=== PATIENT | male | born 1950 | race African-American/Black ===

== ENCOUNTER 2018-11-06 05:45 | Day surgery (SDC) | payer MEDICARE, OTHER ==
[2018-11-05 10:20] LABS: HEMATOCRIT 34.4 % (42.0-54.0); HEMOGLOBIN 11.7 g/dL (13.5-17.5); MCH 29.1 pg (26.0-34.0); MCV 85.6 fL (80.0-100.0); MEAN PLATELET VOLUME 10.6 fL (7.4-10.4); RBC 4.02 10x6/uL (4.20-6.10); RDW 13.6 % (11.5-14.5); WBC 4.8 10x3/uL (4.8-10.8)
[2018-11-05 10:28] LABS: CALCIUM 9.4 mg/dL (8.5-10.1); CARBON DIOXIDE 28.4 mmol/L (21.0-32.0); CREATININE - SERUM 1.6 mg/dL (0.6-1.3); POTASSIUM - SERUM 4.4 mmol/L (3.5-5.1)
[~2018-11-06] VITALS: Ht 182.9 cm; Wt 111.6 kg
[~2018-11-06 05:45] MED LIST: ANDROGEL5 GM TP; ASPIRIN EC81 M1 PO; GLUCOPHAGE1000 MG PO; NORVASC5 MG PO; OMEPRAZOLE20 M1 PO
[2018-11-06] MEDS ORDERED: FLOMAX0.4 MG PO (06:19)
[2018-11-06] MEDS ORDERED: BAYER CHEWABLE81 MG PO (06:21)
[2018-11-06] MEDS ORDERED: LIPITOR10 MG PO (06:21)
[2018-11-06 06:28] VITALS: BP 144/78; Ht 182.9 cm; Wt 111.6 kg
--- NOTE | 2018-11-06 09:26 | OP ---
PATIENT NAME: KATHY MIKE MEDICAL RECORD: [id number] :48 LOCATION:D[facility] ADMISSION DATE: SURGEON: MCKAY XAVIER MD DATE OF OPERATION: 11/06/2018 SURGEON: Mckay Xavier MD ANESTHESIA: TIVA by KEN Silva CRNA. DIAGNOSES: Elevated PSA of 4.14 (08/30/2018), bladder outlet obstruction. PROCEDURE: Cystoscopy, transrectal ultrasound and prostate biopsy. FINDINGS: On cystoscopy, bilateral lateral lobe hyperplasia. Single ureteral orifices bilaterally. No bladder tumors. SPECIMENS: Prostate biopsy cores. BLOOD LOSS: Minimal. CLINICAL HISTORY: This is a 68-year-old male, who has an elevated PSA of 4.14. He is on testosterone supplementation. He has a family history of prostate cancer in an uncle. In terms of voiding symptoms, he has a weaker urinary flow. He comes today to have cystoscopy and a transrectal ultrasound and prostate biopsy. He is not allergic to any medications. He was given Ancef director of reservations to the OR. DESCRIPTION OF PROCEDURE: The patient was given IV sedation. He was then placed into the lithotomy position and prepped and draped. A 21-Serbian cystoscope with 30-degree lens was used for visualization. Findings are as outlined above. The lateral lobes have some degree of obstruction. The bladder neck is a little bit elevated. No bladder tumors were seen. The bladder was then emptied through the cystoscope sheath and the scope was removed. We then introduced the transrectal ultrasound probe. Prostate size measurements were obtained and we estimated the prostate volume at 29 mL. Sextant biopsies were then obtained with at least 3 cores from each sextant. Once all the specimens were obtained, the procedure was terminated. I did not see any hypoechoic areas within the prostate. I will see the patient in followup in 2 weeks to review the pathology results with him. TRANSINT:[id number] Voice Confirmation ID: [id number] DOCUMENT ID: [id number] MCKAY XAVIER MD at 0926 CC: [id number] DICTATION DATE: 11/06/18829 SUPPLY CH[employer] SYSTEMS MANAGER: 11/06/18 0838 [facility] [address] [place] [address]
--- NOTE | 2018-11-06 09:51 | NUR ---
0931 IV DC'D. CATHETER TIP INTACT. NO BLEEDING AT SITE. BANDAID APPLIED.
== END 2018-11-06 09:44 | disposition home or self-care (01) ==
LOC: D.OPS 05:45 → D.PAN 08:20 → D.OPS 08:20 → D.PAN 09:10 → D.OPS 09:30 → D.PAN 09:30 → D.OPS 09:44
PROVIDERS: Anesthesiology; ATTEND Urology
DX: C61 Malignant neoplasm of prostate (principal); N32.0 Bladder-neck obstruction; Z01.812 Encounter for preprocedural laboratory examination

== ENCOUNTER → 2018-11-27 12:19 | Outpatient (CLI) | payer MEDICARE, OTHER ==
[2018-11-06 06:28] VITALS: BMI 33.4
[~2018-11-27 12:19] MED LIST changes: +BAYER CHEWABLE81 MG PO; +FLOMAX0.4 MG PO; +LIPITOR10 MG PO
== END | disposition home or self-care (01) ==
LOC: D.CT 12:00
PROVIDERS: ATTEND Urology
DX: C61 Malignant neoplasm of prostate (principal)

== ENCOUNTER → 2019-04-05 13:10 | Outpatient (CLI) | payer MEDICARE, OTHER ==
[2018-11-06 06:28] VITALS: BMI 33.4
[2019-04-06 05:09] LABS: ANA REFLEX - DIRECT Negative (Negative)
[2019-04-08 12:08] LABS: ANGIOTENSIN CONVERTING ENZYME 27 U/L (14-82)
[2019-04-09 18:08] LABS: FUNGAL - ASP FLAVUS Negative (Neg:<1:1); FUNGAL - ASP NIGER Negative (Neg:<1:1); FUNGAL - ASPER FUMIGATUS Negative (Neg:<1:1)
== END | disposition home or self-care (01) ==
LOC: D.LAB 03-15 14:15 → D.RT 03-15 14:30 → D.CT 03-15 15:00 → D.LAB 13:00 → D.RT 15:00
PROVIDERS: ATTEND Internal Medicine Pulmonary Disease
DX: R06.00 Dyspnea, unspecified (principal)

== ENCOUNTER → 2019-10-03 08:19 | Outpatient (CLI) | payer MEDICARE, OTHER ==
[2018-11-06 06:28] VITALS: BMI 33.4
== END | disposition home or self-care (01) ==
LOC: D.HCCECHO 08:19
PROVIDERS: ATTEND Internal Medicine Cardiovascular Disease
DX: R07.9 Chest pain, unspecified (principal)

== ENCOUNTER 2019-10-24 05:53 | Day surgery (SDC) | payer MEDICARE, OTHER ==
[~2019-10-24] VITALS: Ht 182.9 cm; Wt 111.1 kg
--- NOTE | ~2019-10-24 | HEMODYNAMI ---
PATIENT:KATHY MIKE MEDICAL RECORD: [id number] : 48 LOCATION:[facility] ADMISSION DATE: 10/24/19 Generatedon:10/24/20198:27 Patient name: KATHY MIKE Patient #: [id number] SSN: [id number] : 1950 Date of study: 10/24/2019 Page: Of Hemodynamic Procedure Report Patient Data Patient Demographics Procedure consent was obtained First Name: KATHY Gender: Male Last Name: RASHID : 1950 [facility] Initial: MIYA Age: 69 year(s) Patient #: [id number] Race: Black SSN: [id number] Additional ID: [id number] Contact details [address]: [address] [place] [address] State: [place] City: [place] Zip code: [address] Past Medical History Performed procedures and imaging results Date Procedure Procedure Results Comments 10/03/2019 Stress testing Positive->Intermediate with SPECT MPI risk Admission Admission Data Admission Date: 10/24/2019 Admission Time: 5:53 Arrival Date: 10/24/2019 Arrival Time: 0:00 Admit Source: Other Insurance Payor: Medicare [facility] #: [id number] Height (in.): 72 BSA: 2.32 (m2) Height (cm.): 182.88 BMI: 33.22 (kg/m2) Weight (lbs.): 244.91 Weight (kg.): 111.09 Lab Results Lab Result Date: 10/24/2019 Lab Result Time: 0:00 CBC Name Units Result Min Max Hematocrit % 31.6 *-(----)-- 42 54 Hemoglobin g/dl 10.2 *-(----)-- 13.5 17.5 Procedure Procedure Types Cath Procedure Diagnostic Procedure [facility] w/Coronaries Sedation Charges Moderate Sedation up to 15 minutes Procedure Description Procedure Date Procedure Date: 10/24/2019 Procedure Start Time: 8:06 Procedure End Time: 8:26 Procedure Staff Name Function Omar Chung MD Performing Physician Khadra Aceves RT Monitor Ioana Young RT Scrub Daniel Mercedes RN Nurse Procedure Data Cath Procedure Fluoroscopy Diagnostic fluoroscopy Total fluoroscopy Time: 3 time: 3 min min Diagnostic fluoroscopy Total fluoroscopy dose: dose: 1063 mGy 1063 mGy Contrast Material Contrast Material Type Amount (ml) Isovue 300 93 Entry Location Entry Primary Successful Side Size Upsize Upsize Entry Closure Carlos ccessful Closure Location (Fr) 1 (Fr) 2 (Fr) Remarks Device Remarks Radial Right 6 Fr Mechanical artery Short Compression Estimated blood loss: 5 ml Diagnostic catheters Device Type Used For End Catheter Placement DIAGNOSTIC Raul 110cm Multi-vessel 5Fr catheter ([id number]) Angiography DIAGNOSTIC [place] 110cm 5 Left Coronary Fr catheter (961771) Angiography Procedure Complications No complications Procedure Medications Medication Administration Route Dosage Oxygen etCO2 Nasal cannula 2 l/min Lidocaine 2% added to field 20 Heparin Flush Bag added to field 2 bags (1000units/500ml NS) 0.9% NaCl I.V. 100 ml/hr Versed I.V. 1 mg Fentanyl I.V. 50 mcg Radial Cocktail I.A. 1 syringe (Verapamil 2mg/Nitro 400mcg/Heparin 1500units) Versed I.V. 1 mg Fentanyl I.V. 50 mcg Versed I.V. 1 mg Hemodynamics Rest BSA: 2.32 (m2) HGB: 10.2 (g/dl) O2 Consumption: Estimated: 270.34 (ml/min) O2 Co nsumption indexed: Estimated:116.53 (ml/min/m) Heart Rate: 72 (bpm) Pressure Samples Time Site Value (mmHg) Purpose Heart Use Rate(bpm) 8:11 LV 141/-7,8 Snapshot 66 Gradients Valve Time Site Site Mean SEP/DFP Peak To Heart Use 1 2 (mmHg) (sec/min) Peak Rate (mmHg) (bpm) Aortic 8:12 LV AO 83 Snapshots Pre Cath Intra NCS Post Cath Vital Signs Time Heart Resp SPO2 etCO2 NIBP (mmHg) Rhythm Pain Sedation Rate (ipm) (%) (mmHg) Status Level (bpm) 7:44:49 71 15 100 0 157/97(145) NSR 0 (11) 10(A) , No pain 7:50:25 62 13 98 36.7 145/97(124) NSR 0 (11) 10(A) , No pain 7:54:49 61 13 99 39.6 146/76(124) NSR 0 (11) 10(A) , No pain 7:59:15 63 14 99 40.4 149/74(121) NSR 0 (11) 10(A) , No pain 8:03:38 61 12 98 40.4 135/70(126) NSR 0 (11) 10(A) , No pain 8:07:51 95 13 100 0 126/77(100) NSR 0 (11) 9(A) , No pain 8:12:51 66 15 97 35.2 121/66(0) NSR 0 (11) 9(A) , No pain 8:17:46 69 11 100 38.9 128/82(110) NSR 0 (11) 9(A) , No pain 8:22:08 63 12 100 38.2 138/73(119) NSR 0 (11) 10(A) , No pain 8:26:32 66 12 100 40.4 157/78(137) NSR 0 (11) 10(A) , No pain Medications Time Medication Route Dose Verified Delivered Reason Notes Effectiveness by by 7:50:23 Oxygen etCO2 2 l/min Omar Buffie used for Nasal Sheldon Mercedes RN procedure cannula 7:50:33 Lidocaine 2% added 20ml Omar Buffie used for to vial Sheldon Mercedes RN procedure field 7:50:41 Heparin Flush added 2 bags Omar Buffie used for Bag to Sheldon Mercedes RN procedure (1000units/500ml field NS) 7:50:53 0.9% NaCl I.V. 100 Omar Buffie Per ml/hr Sheldon Mercedes RN physician 8:00:34 Versed I.V. 1 mg Omar Buffie for sedation Sheldon Mercedes RN 8:00:41 Fentanyl I.V. 50 mcg Omar Buffie for sedation Sheldon Mercedes RN 8:04:30 Versed I.V. 1 mg Omar Omar for sedation Sheldon Chung MD 8:04:34 Fentanyl I.V. 50 mcg Omar Omar for sedation Sheldon Chung MD 8:10:31 Radial Cocktail I.A. 1 Omar Omar for (Verapamil syringe Sheldon Chung MD vasodilation 2mg/Nitro 400mcg/Heparin 1500units) 8:11:28 Versed I.V. 1 mg Omar Omar for sedation Sheldon Chung MD Procedure Log Time Note 7:30:15 Daniel Mercedes RN sent for patient. Start room use. 7:31:07 Informed consent obtained and on chart 7:31:29 Diagnostic Cath Status : Elective 7:32:12 Arrival Date: 10/24/2019 12:00:00 AM 7:32:13 Admit Source: Other 7:32:14 Insurance Payor : Medicare 7:32:52 Patient Height : 72 inches 7:32:56 Patient Weight : 244.91 lbs 7:34:22 Time tracking: Regular hours (M-F 7:00 - 5:00) 7:34:27 Plan of Care:Hemodynamics will remain stable., Cardiac rhythm will remain stable., Comfort level will be maintained., Respiratory function will remain adequate., Patient/ family verbilizes understanding of procedure., Procedure tolerated without complication., Recovers from procedure without complications.. 7:34:37 H&P Date Dictated: 10/22/2019 Within 30 days and on chart.. 7:34:38 Pre-procedure instructions explained to patient. 7:34:39 Pre-op teaching completed and patient verbalized understanding. 7:34:40 Family unavailable. 7:34:42 Patient NPO since Midnight. 7:34:48 Lab results completed and on chart. 7:35:05 Stress Test: yes; abnormal INFERIOR SEGMENTS 7:35:07 Alarms reviewed by R. N. 7:35:07 Sharps counted by scrub and verified by R.N. 7:35:24 Lab Result : Hemoglobin 10.2 g/dl 7:35:24 Lab Result : Hematocrit 31.6 % 7:35:44 Patient received from Pre/Post Procedure Room to CCL 1 Alert and oriented. Tansferred to table in Supine position. 7:43:29 Vital chart was started 7:44:38 Warm blankets applied, and landy hugger turned on for patient comfort. 7:44:39 Correct patient and procedure confirmed by team. 7:44:39 ECG and BP/O2 sat monitors applied to patient. 7:44:40 Baseline sample Acquired. 7:44:44 Rhythm: sinus rhythm 7:44:46 Full Disclosure recording started 7:44:49 Is the patient allergic to Iodine/contrast media? No. 7:44:51 Was the patient premedicated? Yes 7:44:53 Is patient on blood thinner?No 7:44:57 Patient diabetic? Yes. 7:45:05 If diabetic: On Metformin? Yes 7:45:08 If on Metformin: Last Dose? 10/20/2019 7:45:12 Previous problem with sedation/anesthesia? No ? 7:45:16 Snore? Yes 7:45:17 Sleep apnea? Yes 7:45:19 Deviated septum? No 7:45:19 Opens mouth fully? Yes 7:45:20 Sticks out tongue? Yes 7:45:31 Airway obstruction? Yes COPD, ASTHMA 7:45:39 Dentures? No ? 7:48:27 Pre procedure: right dorsailis pedis pulse 2+ Normal; easily identifiable; not easily obliterated 7:48:29 Pre procedure: left dorsailis pedis pulse 2+ Normal; easily identifiable; not easily obliterated 7:48:31 Patient pain scale 0/10 ?. 7:48:39 IV patent on arrival in left forearm with 0.9% NaCl at [facility]. 7:50:23 Oxygen 2 l/min etCO2 Nasal cannula was administered by Daniel Mercedes RN; used for procedure; Verbal order read back and verified. 7:50:33 Lidocaine 2% 20ml vial added to field was administered by Daniel Mercedes RN; used for procedure; Verbal order read back and verified. 7:50:41 Heparin Flush Bag (1000units/500ml NS) 2 bags added to field was administered by Daniel Mercedes RN; used for procedure; Verbal order read back and verified. 7:50:49 Risk of Mortality: 0.2 7:50:52 Risk of blood transfusion: 1.9 7:50:53 0.9% NaCl 100 ml/hr I.V. was administered by Daniel Mercedes RN; Per physician; Verbal order read back and verified. 7:50:59 Right Radial & Right Groin area was prepped with chlora-prep and draped in sterile fashion 7:54:57 Physician arrived 7:54:57 --------ALL STOP TIME OUT------ 7:54:58 Final Timeout: patient, procedure, and site verified with staff and physician. All members of the team are in agreement. 7:55:02 Right Radial & Right Groin site verified by team. 7:55:06 Fire Safety Assessment: A--An alcohol-based skin anteseptic being used preoperatively., C--Open oxygen or nitrous oxide is being used., D--An ESU, laser, or fiber-optic light is being used. 7:55:10 Physical assessment completed. ASA score P 2 - A patient with mild systemic disease as per Omar Chung MD. 7:59:09 3b) 30-44 Moderately reduced kidney function. 7:59:12 Maximum allowable contrast dose (3.7 X eGFR X 0.75)111 ml. 7:59:16 Sedation plan: IV Moderate Sedation Medication:Versed, Fentanyl 7:59:22 Use device set Radial Dx or PCI 7:59:23 ACIST Syringe (26618) opened to sterile field. 7:59:24 Medline Cath Pack ([id number]) opened to sterile field. 7:59:24 Bag Decanter (2002S) opened to sterile field. 7:59:25 ACIST Hand Control (14674) opened to sterile field. 7:59:25 ACIST Manifold (94464) opened to sterile field. 7:59:25 Tegaderm 4 x 4 (1626W) opened to sterile field. 7:59:26 MBrace Wrist Support ([id number]) opened to sterile field. 7:59:29 NEEDLE Cook 21G 4cm Radial (C48438) opened to sterile field. 7:59:30 EMERALD Guide Wire (878-741) opened to sterile field. 7:59:31 SHEATH 6FR RAIN (0127801) opened to sterile field. 8:00:34 Versed 1 mg I.V. was administered by Daniel Mercedes RN; for sedation; Verbal order read back and verified. 8:00:41 Fentanyl 50 mcg I.V. was administered by Daniel Mercedes RN; for sedation; Verbal order read back and verified. 8:01:53 Zero performed for pressure channel P1 8:04:30 Versed 1 mg I.V. was administered by Omar Chung MD; for sedation; Verbal order read back and verified. 8:04:34 Fentanyl 50 mcg I.V. was administered by Omar Chung MD; for sedation; Verbal order read back and verified. 8:06:02 Procedure started. 8:06:06 Local anesthetic to right radial artery with Lidocaine 2% by Omar Chung MD.INITIAL ACCESS ONLY 8:10:14 A 6 Fr Short sheath was inserted into the Right Radial artery 8:10:31 Radial Cocktail (Verapamil 2mg/Nitro 400mcg/Heparin 1500units) 1 syringe I.A. was administered by Omar Chung MD; for vasodilation; Verbal order read back and verified. 8:10:45 A DIAGNOSTIC Raul 110cm 5Fr catheter (897369) was advanced over the wire and used for Multi-vessel Angiography. 8:11:28 Versed 1 mg I.V. was administered by Omar Chung MD; for sedation; Verbal order read back and verified. 8:12:02 LV hemodynamics recorded. 8:12:03 LV gram done using AMBROSE 8:12:05 Injector settings: Ml/sec: 5, Volume: 15, 8:12:15 EF : 60 % 8:13:14 RCA angiography performed. 8:13:21 Injector settings: Ml/sec: 3, Volume: 6, 8:14:30 Catheter removed. 8:14:37 A DIAGNOSTIC [place] 110cm 5 Fr catheter (908579) was advanced over the wire and used for Left Coronary Angiography. 8:18:24 LCA angiography performed. 8:18:27 Injector settings: Ml/sec: 3, Volume: 6, 8:20:16 Catheter removed. 8:20:30 ZEPHYR REGULAR TR BAND (965286) opened to sterile field. 8:20:52 Sheath removed intact; hemostasis achieved with Mechanical Compression to the Right Radial artery. 8:20:56 Procedure ended.(Physican Out) 8:22:43 Fluoroscopy time 03.00 minutes. 8:22:47 Flurop Dose total: 1063 8:22:47 Fluoroscopy dose: 1063 mGy 8:22:52 Dose Area Product 24769 mGy/cm. 8:23:04 Contrast amount:Isovue 300 93ml. 8:23:12 Maximum allowable dose exceeded? No. 8:23:14 Sharps counted by scrub and verified by R.N. 8:24:28 [place] band inflated with 10cc of air. 8:24:38 Insertion/operative site no bleeding no hematoma. 8:24:52 Post right radial artery:stable 8:25:02 Post Procedure Pulses reassessed and unchanged 8:25:05 Post procedure rhythm: unchanged. 8:25:07 Estimated blood loss: 5 ml 8:25:09 Post procedure instruction explained to patient.Patient verbalizes understanding. 8:25:10 Patient needs reinforcement of post procedure teaching. 8:25:45 Procedure type changed to Cath procedure, Diagnostic procedure, LHC, [facility] w/Coronaries, Sedation Charges, Moderate Sedation up to 15 minutes 8:25:46 Procedure and supply charges have been captured, reviewed, submitted and are correct. 8:25:51 Procedure Complication : No complications 8:26:10 Vital chart was stopped 8:26:12 [facility] Findings: MVD- CABG consult 8:26:14 Operative report dictated upon procedure completion. 8:26:14 See physician's report for complete and final results. 8:26:17 Report given to Pre/Post Procedure Room. 8:26:20 Patient transfered to Pre/Post Procedure Room with Stretcher. 8:26:24 Procedure ended. 8:26:24 Full Disclosure recording stopped 8:26:28 End room use (Document Last) 8:26:59 End room use (Document Last) 8:27:25 End room use (Document Last) Device Usage Item Name Manufacture Quantity Catalog Hospital Part Current Minima l Lot# / Number Charge Number Stock Stock Serial# Code ACIST Acist 1 73784 906655 208061 045147 20 Syringe Medical (97097) Systems Inc Medline Medline 1 [id number] 694942 32200 933897 5 Cath Pack ([id number]) Bag Microtek 1 092732 23064 457381 5 Decanter Medical Inc. () ACIST Hand Acist 1 03854 444966 009465 545918 5 Control Medical (60099) Systems Inc ACIST Acist 1 49199 893057 882860 924307 5 Manifold Medical (04744) Systems Inc Tegaderm 4 3M 1 1626W 531492 075756 827271 5 x 4 (1626W) MBrace Advanced 1 140-0250-00 763206 08190 324070 5 Wrist Vascular Support Dynamics ([id number]) NEEDLE DirectLaw Medical 1 J65952 711316 654432 708418 5 21G 4cm Radial (J35427) DANYALD [place] 1 502-100 063714 664776 888426 5 Guide Wire Health (578-120) SHEATH 6FR Cardinal 1 8406038 305138 8754450 885645 5 [facility] Health (5095341) DIAGNOSTIC Terumo 1 40-5023 515870 214970 887324 5 Raul 110cm 5Fr catheter (921409) DIAGNOSTIC Terumo 1 40-5013 534280 866219 692521 5 [place] 110cm 5 Fr catheter (631678) ZEPHYR Cardinal 1 868549 173076 5445126 724795 5 REGULAR TR Health BAND (485800) Signature Audit Elora Stage Time Signature Unsigned Intra-Procedure 10/24/2019 Khadra Aceves 8:26:59 AM RT(R) Intra-Procedure 10/24/2019 Daniel Mercedes RN 8:27:25 AM Intra-Procedure 10/24/2019 Omar Chung MD 8:27:43 AM [facility] [address] [place] [address]
[2019-10-24] MEDS ORDERED: IPRAT-ALBUT 0.5-3 ML UPD (06:17)
[2019-10-24] MEDS ORDERED: GEMFIBROZIL600 MG PO (06:17)
[2019-10-24] MEDS ORDERED: OXYBUTYNIN CHLOR5 MG PO (06:18)
[2019-10-24] MEDS ORDERED: HUMALOG MI100 UNITS/ SC (06:19)
[2019-10-24] MEDS ORDERED: BASAGLAR K100 UNIT/1 SC (06:20)
[2019-10-24 06:39] VITALS: BP 144/75; Ht 182.9 cm; Wt 111.1 kg
[2019-10-24 07:07] LABS: BASOPHILS 0.4 % (0-2); EOSINOPHILS 5.7 % (0-7); HEMATOCRIT 31.6 % (42.0-54.0); HEMOGLOBIN 10.2 g/dL (13.5-17.5); IMMATURE GRANULOCYTES 0.2 % (0-5); LYMPHOCYTES 28.7 % (15-50); MCH 27.6 pg (26.0-34.0); MCHC 32.3 g/dL (31.0-37.0); MCV 85.6 fL (80.0-100.0); MEAN PLATELET VOLUME 10.7 fL (7.4-10.4); MONOCYTES 9.4 % (2-11); NEUTROPHILS 55.6 % (40-80); PLATELET COUNT 253 10x3/uL (130-400); RBC 3.69 10x6/uL (4.20-6.10); RDW 13.9 % (11.5-14.5); WBC 4.6 10x3/uL (4.8-10.8)
[2019-10-24 07:57] LABS: ANION GAP 15.8 mmol/L (8-16); CALCIUM 9.7 mg/dL (8.5-10.1); CARBON DIOXIDE 24.5 mmol/L (21.0-32.0); CHOL - HDL RATIO 3.9 ratio (2.3-4.9); CREATININE - SERUM 1.8 mg/dL (0.6-1.3); LDL-HDL RATIO 2.1 ratio (1.5-3.5); POTASSIUM - SERUM 4.3 mmol/L (3.5-5.1)
--- NOTE | 2019-10-24 08:40 | NUR ---
PT RECEIVED VIA STRETCHER FROM DIRECTOR [employer] FOR [employer]OV[employer]. PT AWAKE BUT DROWSY, PT DENIES PAIN OR DISCOMFORT. ZYPHER BAND AND IMMOBILIZER TO R WRIST/ARM, NO BLEEDING OR S/S HEMATOMA NOTED. ARM WARM, CAP REFILL BRISK. PT INSTRUCTED NOT TO USE ARM, HE VERBALIZED UNDERSTANDING. IV PATENT INFUSING VIA ORDERS. PT PLACED ON CARDIAC MONITORS AND O2 VIA NC AT 2L. HR NSR RATE 65, BP 135/79, RR 10, SAT 98. CALL LIGHT IN REACH.
--- NOTE | 2019-10-24 09:00 | NUR ---
ZBAND AND IMMOBILIZER IN PLACE, NO S/S HEMATOMA OR BLEEDING. CAP REFILL BRISK. HR 68, BP 135/74, RR 13, SAT 98. PT DENIES NEEDS AT THIS TIME. CALL LIGHT IN REACH.
--- NOTE | 2019-10-24 09:48 | NUR ---
DR LARIOS AT , DISCUSSING PLAN OF CARE AND PROCEDURE RESULTS. ZBAND AND IMMOBILIZER IN PLACE. NO S/S HEMATOMA OR BLEEDING . CALL LIGHT IN REACH. NO NEW ORDERS RECEIVED
--- NOTE | 2019-10-24 10:15 | NUR ---
5cc AIR REMOVED FROM Z BAND, NO BLEEDING OR S/S HEMATOMA NOTED. PT RESTING COMFORTABLY, DENIES PAIN OR NEEDS. OFFERED SANDWICH, HE DECLINES AT THIS TIME. VSS AT PRESENT. PT VOIDED 150CC IN URINAL. CALL LIGHT IN REACH
--- NOTE | 2019-10-24 10:47 | NUR ---
DISCHARGE INSTRUCTIONS REVIEWED W PT, HE VERBALIZED UNDERSTANDING. IV REMOVED W CATH INTACT, MONITORS REMOVED. 5 ADD'L CC AIR REMOVED FROM Z BAND, NO BLEEDING NOTED. PT UP TO DRESS FOR DISCHARGE.
--- NOTE | 2019-10-24 10:50 | NUR ---
PT DRESSED, ZBAND AND REMAINING AIR REMOVED NO BLEEDING OR S/S HEMATOMA NOTED. 2X2 AND SM TEGADERM DRESSING APPLIED. IMMOBILIZER RE POSITIONED.
--- NOTE | 2019-10-24 11:07 | NUR ---
PT DISCHARGED VIA WC TO SON WAITING IN PRIVATE VEHICLE. PT HAD ALL BELONGINGS AND DISCHARGE PAPERWORK.
== END 2019-10-24 11:05 | disposition home or self-care (01) ==
LOC: D.CATH 05:53
PROVIDERS: ATTEND Internal Medicine Cardiovascular Disease
DX: I25.119 Atherosclerotic heart disease of native coronary artery with unspecified angina pectoris (principal); R94.39 Abnormal result of other cardiovascular function study; J44.9 Chronic obstructive pulmonary disease, unspecified; E78.5 Hyperlipidemia, unspecified; I10 Essential (primary) hypertension; R07.9 Chest pain, unspecified; R06.09 Other forms of dyspnea; I34.0 Nonrheumatic mitral (valve) insufficiency; R94.31 Abnormal electrocardiogram [ECG] [EKG]

== ENCOUNTER 2019-11-11 08:59 | Inpatient (IN) | payer MEDICARE, OTHER ==
[~2019-11-11] VITALS: Ht 182.9 cm; Wt 111.8 kg
[~2019-11-11 08:59] MED LIST changes: +BASAGLAR K100 UNIT/1 SC; +GEMFIBROZIL600 MG PO; +HUMALOG MI100 UNITS/ SC; +IPRAT-ALBUT 0.5-3 ML UPD; +OXYBUTYNIN CHLOR5 MG PO
[2019-11-11] MEDS ORDERED: LANTUS INS100 UNITS/ (09:29)
[2019-11-11 11:40] LABS: BASOPHILS 0.2 % (0-2); EOSINOPHILS 4.3 % (0-7); HEMATOCRIT 31.6 % (42.0-54.0); HEMOGLOBIN 10.2 g/dL (13.5-17.5); IMMATURE GRANULOCYTES 0.2 % (0-5); LYMPHOCYTES 21.6 % (15-50); MCH 27.9 pg (26.0-34.0); MCHC 32.3 g/dL (31.0-37.0); MCV 86.3 fL (80.0-100.0); MEAN PLATELET VOLUME 10.3 fL (7.4-10.4); MONOCYTES 8.6 % (2-11); NEUTROPHILS 65.1 % (40-80); PLATELET COUNT 263 10x3/uL (130-400); RBC 3.66 10x6/uL (4.20-6.10); RDW 13.7 % (11.5-14.5); WBC 4.2 10x3/uL (4.8-10.8)
[2019-11-11 11:47] LABS: APTT 32.2 SECONDS (22.8-39.4); INR 1.01 (0.85-1.17); PROTIME 13.3 SECONDS (11.6-15.0)
[2019-11-11 12:07] LABS: ALBUMIN 3.9 g/dL (3.4-5.0); ANION GAP 11.8 mmol/L (8-16); BILIRUBIN - TOTAL 0.23 mg/dL (0.2-1.3); CALCIUM 9.8 mg/dL (8.5-10.1); CARBON DIOXIDE 28.3 mmol/L (21.0-32.0); CREATININE - SERUM 1.8 mg/dL (0.6-1.3); PHOSPHOROUS 3.7 mg/dL (2.5-4.9); POTASSIUM - SERUM 4.1 mmol/L (3.5-5.1); PROTEIN - SERUM 7.8 g/dL (6.4-8.2); T4 THYROXIN - FREE 0.87 ng/dL (0.76-1.46); THYROID STIMULATING HORMONE 1.07 uIU/mL (0.36-3.74); URIC ACID 6.6 mg/dL (2.6-7.2)
[2019-11-11 12:11] LABS: BILIRUBIN NEGATIVE (NEGATIVE); KETONE NEGATIVE (NEGATIVE); NITRITE NEGATIVE (NEGATIVE)
[2019-11-11 12:18] LABS: BACTERIA FEW /hpf (NONE SEEN); EPITHELIAL CELLS RARE /hpf (0-5); WHITE CELLS - URINE RARE /hpf (0-5)
[2019-11-14] VITALS (49 sets, daily range): BP systolic 115–161; BP diastolic 37–78; BMI 32.9; BMI 33.7
--- NOTE | 2019-11-14 06:04 | NUR ---
0600-IV DISCONTINUED AFTER INITALLY INFUSING WELL, BEGAN SWELLING SHORTLY AFTER START.
[2019-11-14 11:41] LABS: INR 1.6 (0.85-1.17); PROTIME 18.9 SECONDS (11.6-15.0)
[2019-11-14 13:19] LABS: INR 1.36 (0.85-1.17); PROTIME 16.7 SECONDS (11.6-15.0)
--- NOTE | 2019-11-14 18:05 | NUR ---
DR. FINNEGAN NOTIFIED OF PATIENT UPDATE OF BP AND INSULIN GTT WAS STARTED. NEW ORDERS RECEIVED.
[2019-11-15] VITALS (88 sets, daily range): BP systolic 112–155; BP diastolic 45–79; Ht 182.9 cm; Wt 111.8 kg
[2019-11-15 00:38] LABS: ANION GAP 17.9 mmol/L (8-16); CALCIUM 8.2 mg/dL (8.5-10.1); CARBON DIOXIDE 20.9 mmol/L (21.0-32.0); CREATININE - SERUM 2.1 mg/dL (0.6-1.3); POTASSIUM - SERUM 3.8 mmol/L (3.5-5.1)
--- NOTE | 2019-11-15 02:18 | NUR ---
DR FINNEGAN MADE AWARE OF ABGS AT 2023. ORDERS RECEIVED TO EXTUBATE. REPORTED GLUCOSE AND VITAL SIGNS. RECEIVED ORDERS FOR 20MEQ KCL, 2.5 LOPRESSOR ONE TIME ALSO GIVE PRN HYRALAZINE, ABG [address] DERAS FOR BLOOD SUGARS. 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 CONTINUE PROTOCOL BEYOND 18 UNITS/HR AND Q 4H BMP.
--- NOTE | 2019-11-15 04:41 | NUR ---
PT DANGLED, TOLERATED WELL. 20ML NOTED TO CHEST TUBE AND 10 ML TO FILIPE DRAIN. PT IN BED. WILL CONTINUE TO OBSERVE
[2019-11-15 06:16] LABS: ALBUMIN 3.3 g/dL (3.4-5.0); ANION GAP 16.9 mmol/L (8-16); BILIRUBIN - TOTAL 0.24 mg/dL (0.2-1.3); CALCIUM 8.7 mg/dL (8.5-10.1); CARBON DIOXIDE 22.1 mmol/L (21.0-32.0); CREATININE - SERUM 2.1 mg/dL (0.6-1.3); PROTEIN - SERUM 6.9 g/dL (6.4-8.2)
--- NOTE | 2019-11-15 06:50 | NUR ---
CHG BATH GIVEN AND SUBSTERNAL DRESSING CHANGED. COBAN TO RLE REMOVED. PT UP TO CHAIR. TOLERATED WELL. SOME COMPLAINTS OF NAUSEA WITH SMALL CLEAR SPIT UP, LESS THAN 5ML. PT CONSUMED LITTLE ICE CHIPS/WATER EVEN WITHOUT COMPLAINTS OF NAUSEA, ENCOURAGEMENT NEEDED TO DRINK.
[2019-11-15 08:04] LABS: BASOPHILS 0.1 % (0-2); EOSINOPHILS 0.9 % (0-7); IMMATURE GRANULOCYTES 0.8 % (0-5); LYMPHOCYTES 7.6 % (15-50); MCH 28.5 pg (26.0-34.0); MCHC 32.8 g/dL (31.0-37.0); MEAN PLATELET VOLUME 10.2 fL (7.4-10.4); MONOCYTES 5.1 % (2-11); NEUTROPHILS 85.5 % (40-80); RDW 14.4 % (11.5-14.5)
[2019-11-15 08:06] LABS: HEMATOCRIT 29.6 % (42.0-54.0); HEMOGLOBIN 9.7 g/dL (13.5-17.5); MCV 87.1 fL (80.0-100.0); PLATELET COUNT 205 10x3/uL (130-400); WBC 14.1 10x3/uL (4.8-10.8)
--- NOTE | 2019-11-15 08:47 | EC ---
PATIENT:KATHY MIKE DATE OF SERVICE: 11/14/19 SEX: M MEDICAL RECORD: [id number] DATE OF : [birth year] LOCATION:[place] [address] AGE OF PATIENT: 69 ADMISSION DATE: 11/14/19 REFERRING PHYSICIAN: INTERPRETING PHYSICIAN: ASA COYLE MD ECHOCARDIOGRAM REPORT ECHO CHARGES Date: 11/14/19 CLINICAL DIAGNOSIS: ECHOCARDIOGRAPHIC MEASUREMENTS (adult normal given) AC root (d.<3.7cm) cm LV Septum d (<1.2 cm> cm Valve Excursion cm LV Septum (systole) cm Left Atria (s.<4.0cm> cm LVPW d(<1.2cm) cm RV (d.<2.3cm) cm LVPW (sytole) cm LV diastole(<5.6CM) cm MV E-F(>70mm/sec) cm LV systole cm LVOT Diameter cm MV exc.(>10mm) cm Est.ejection fraction (50-75%) % DOPPLER: LVIT cm/sec A cm/sec E cm/sec LA cm/sec RVSP mmHg LVOT cm/sec AOP1/2T m/s Asc. Ao cm/sec RVOT cm/sec RA cm/sec PA cm/sec AV Gradient Peak mmHg AV Mean mmHg AV Area cm MV Gradient Peak mmHg MV Mean mmHg MV Area cm COMMENTS: Tank Welder: Haja VAZQUEZ Check Cashier: 3 Dr. Shepard TAPE# PACS Pericardial Effusion DATE OF SERVICE: PROCEDURE: Intraoperative transesophageal. Preoperative, LV internal wall motion appear normal. EF is better than 50%. Aortic valve has good valve excursion. No significant AI. Left atrium appears normal. Mitral valve shows trivial MR only. Postoperatively, good thickening of all segments of the LV and normal LV function 55%. Aortic valve has good valve excursion. Mitral valve shows ECHOCARDIOGRAM REPORT [id number] KATHY MIKE trivial MR. TRANSINT:[id number] Voice Confirmation ID: [id number] DOCUMENT ID: [id number] ASA COYLE MD at 0847 CC: [id number] DICTATION DATE: 11/14/19 1337 AUDIO VISUAL TECH: 11/14/19 1531 ADM IN [address] [place] [address]
[2019-11-15 09:36] LABS: HEMOGLOBIN 9.9 g/dL (13.5-17.5); MCH 28.7 pg (26.0-34.0); RBC 3.45 10x6/uL (4.20-6.10)
[2019-11-15 09:37] LABS: EOSINOPHILS 0 % (0-7); LYMPHOCYTES 5.5 % (15-50); MEAN PLATELET VOLUME 11.1 fL (7.4-10.4); MONOCYTES 9.9 % (2-11); NEUTROPHILS 84.1 % (40-80); PLATELET COUNT 241 10x3/uL (130-400); RDW 14.3 % (11.5-14.5)
[2019-11-15 09:38] LABS: BASOPHILS 0.1 % (0-2); IMMATURE GRANULOCYTES 0.4 % (0-5)
[2019-11-15 09:40] LABS: WBC 16.3 10x3/uL (4.8-10.8)
--- NOTE | 2019-11-15 10:59 | NUR ---
07-RECIEVED AWAKE AND ALERT-UP IN CHAIR-SR ON MONITOR-O2 AT 2L-PACEMAKER ATTACHED AND OFF AT THIS TIME- 0800-DR FINNEGAN AT BEDSIDE-ORDER RECIEVED-CBC REPEATED WITH BLOOD DRAW- 929-ARMANDO D/C'D ORDERED -SEE EMAR FOR PAIN MANAGEMENT-ENCOURAGED TO DO INCENTIVE-PT WILLING- REPEATED 10X WITH ONLY 500ML-STATED TO PAINFUL TO DO ANY BETTER-FOLLOWING PAIN MANAGEMNT 1030-ASSISTED TO BED FOR REST PERIOD-ORDER PUT IN FOR PHYSICAL THERAPY CLEVIPREX ADJUSTED TO 15MG=NIBP 137/68
--- NOTE | 2019-11-15 13:58 | OP ---
PATIENT NAME: KATHY MIKE MEDICAL RECORD: [id number] :48 LOCATION:D.CVI D.CV04 ADMISSION DATE:11/14/19 SURGEON: EVAN FINNEGAN MD DATE OF OPERATION: 11/14/2019 SURGEON: Evan Finnegan MD PROCEDURE PERFORMED: 1. Coronary artery bypass graft times 3 (left internal mammary to LAD, reverse saphenous vein graft from aorta to obtuse marginal, aorta to posterior descending artery). 2. Endoscopic saphenous vein harvest. PREOPERATIVE DIAGNOSIS: Coronary artery disease. POSTOPERATIVE DIAGNOSIS: Coronary artery disease. ANESTHESIA: General endotracheal anesthesia. ESTIMATED BLOOD LOSS: Total cardiopulmonary bypass with Cell Saver retransfusion, 1 packed red blood cells, 1 unit FFP. COMPLICATIONS: None. SPECIMENS: None. CONDITION: Stable. DISPOSITION: CV ICU. OPERATIVE FINDINGS: 1. Transesophageal echocardiography revealed left ventricular end-diastolic dimension greater than 6. The patient had a large heart with severe distal disease, particularly in the LAD. 2. Good quality left internal mammary artery to LAD was 2.0-mm with severe disease posterior plaque throughout anastomosis between the severe plaque and area with posterior plaque. Good Doppler signal after anastomosis and a 1.5-mm probe passed distally to the apex. 3. Obtuse marginal, which was really the posterolateral branch 2.5-mm with severe disease. 4. Posterior ascending artery 1.5-mm and thin walled. 5. The diagonal was small, severely diseased and not grafted. OPERATIVE INDICATION: Coronary artery disease. DESCRIPTION OF PROCEDURE: The patient was brought to the operating suite. General anesthesia was obtained, the patient was prepped and draped. Greater saphenous vein harvested from right lower extremity utilizing endoscopic technique. Side branches were divided with electrocautery. Vessel was ligated proximally and distally removed. Side branches were oversewn. Leg was later closed in 2 layers. Median sternotomy incision was made. Subcutaneous tissue was divided with electrocautery. Sternum was divided with a saw. Left hemisternum was elevated. Left pleural cavity was entered. Left internal mammary artery and vein were OPERATIVE REPORT [id number] KATHY MIKE taken down as a pedicle graft. Sternal retractor was placed. Pericardium was opened. Heparin was given. The aorta was cannulated. Dual stage venous cannula was inserted. Internal mammary was clipped distally and made ready for anastomosis. Activated clotting time was appropriately elevated. The patient was placed in cardiopulmonary bypass. Sites for distal anastomosis were selected. Antegrade cardioplegic cannula was inserted. The patient was cooled. Crossclamp was placed. Cardioplegia was given antegrade and this was repeated at 20-minute intervals including down the completed vein grafts. Distal anastomosis was performed in standard technique. Proximal anastomosis with single cross-clamp technique. Aortic root de-aired. Crossclamp removed. Proximal anastomosis tied down. Vein grafts deaired and flow restored. Proximal and distal anastomotic were sites inspected for bleeding. A single 7 on the internal mammary distal and 6-0 in each of the proximals. With hemostasis assured, the patient was fully rewarmed, weaned from cardiopulmonary bypass, and was stable. The patient was decannulated. The cannula sites were oversewn. Protamine was given. Thorough irrigation was undertaken and hemostasis was assured. Drains were placed in the mediastinum and both pleural cavities. Ventricular pacing wires were placed. Pericardial fat was loosely reapproximated in the midline. Left chest was evacuated and irrigated. Internal mammary harvest site was inspected for bleeding. Sternum was closed with wires. Fascia was closed. Subcutaneous tissue was closed. Skin was closed. Dermabond was placed. Needle and sponge counts were reported as correct. The patient was taken to ICU in stable condition. TRANSINT:[id number] Voice Confirmation ID: [id number] DOCUMENT ID: [id number] EVAN FINNEGAN MD at 1358 CC: NOAM LARIOS M.D. and DELANO MORALES [id number] DICTATION DATE: 11/14/19 1327 [employer] MAIL CONTRACTOR: 11/14/19 1627 ADM IN [facility] [address] [id number]
--- NOTE | 2019-11-15 15:06 | NUR ---
SON AT BEDSIDE-UPDATE GIVEN-INFORMED DR FINNEGAN AT BEDSIDE TO REMOVE CHEST TUBE-PREMED MORPHINE-2MG IVP GIVEN-SON STATED NO QUESTIONS AT THIS TIME FOR DR FINNEGAN AND LEFT FOR PROCEDURE -CHEST TUBES REMOVED PER DR FINNEGAN-TOLERATED WELL BY PT-PACER WIRE SECURED 1430 -PHYSICAL THERAPY AT BEDSIDE-ASSISTED PT TO BEDSIDE CHAIR MODERATE STRENGTH
--- NOTE | 2019-11-15 18:40 | NUR ---
1730-ASSISTED PT TO BEDSIDE COMMODE-SR ON MONITOR 1830-RT RX IN PROGRESS-PT AWAKE -
--- NOTE | 2019-11-15 19:30 | NUR ---
REPORT REC'D PT REC'D LYING IN BED, ORIENTED TO PERSON ONLY AT THIS TIME, O2 @ 2 LITERS VIA NC, RIJ CVL SEE FLOWSHEET FOR IV GTTS, MAEE, MIDSTERNAL DRSG CDI, SUBSTERNAL DRSG CDIL LEFT SUBSTERNAL FILIPE DRAIN COMPRESSED WITH SANGUINOUS DRAINAGE, RIGHT LEG HARVEST SITES OPEN TO AIR, TEDS AND SCDS IN PLACE, PPP, PT DENIES PAIN, WILL MONITOR CLOSELY FOR CHANGES.
[2019-11-16] VITALS (77 sets, daily range): BP systolic 101–158; BP diastolic 50–88
--- NOTE | 2019-11-16 04:45 | NUR ---
PT TAKEN TO RADIOLOGY FOR PA AND LATERAL
[2019-11-16 06:06] LABS: HEMATOCRIT 28.8 % (42.0-54.0); HEMOGLOBIN 9.4 g/dL (13.5-17.5); MCH 28.7 pg (26.0-34.0); MCHC 32.6 g/dL (31.0-37.0); MCV 87.8 fL (80.0-100.0); MEAN PLATELET VOLUME 10.7 fL (7.4-10.4); RBC 3.28 10x6/uL (4.20-6.10); RDW 14.8 % (11.5-14.5); WBC 17.2 10x3/uL (4.8-10.8)
[2019-11-16 06:37] LABS: ALBUMIN 3.1 g/dL (3.4-5.0); ANION GAP 14.1 mmol/L (8-16); BILIRUBIN - TOTAL 0.52 mg/dL (0.2-1.3); CALCIUM 8.3 mg/dL (8.5-10.1); CARBON DIOXIDE 23.1 mmol/L (21.0-32.0); POTASSIUM - SERUM 4.2 mmol/L (3.5-5.1); PROTEIN - SERUM 7.1 g/dL (6.4-8.2)
--- NOTE | 2019-11-16 14:25 | NUR ---
PATIENT WALKED WITH PT OUT TO NURSES DESK. PATIENT TOLERATED BETTER THAN THIS AM WALK. BACK TO CHAIR.
--- NOTE | 2019-11-16 16:10 | NUR ---
BLACK REMOVED CATH TIP INTACT WITHOUT DRAINAGE NOTED.
--- NOTE | 2019-11-16 18:53 | NUR ---
DR. BEE NOTIFIED OF PATIENT BEING MORE LETHARGIC AND CONFUSED. ABG COMPLETE AND REPORTED 1736. ORDER FOR CA GIVEN.
--- NOTE | 2019-11-16 19:20 | NUR ---
REPORT REC'D AND CARE ASSUMED, PT RESTING IN BED WITH HOME CPAP ON WITH [address], PT AWAKENS TO VERBAL STIMULI, FOLLOWING COMMANDS AND MAEE, PT ORIENTED TO PERSON, PLACE, AND TIME, SEEMS TO BE A DELAY WHEN PATIENT ANSWERING OR PERFORMING A COMMAND. DENIES PAIN AT THIS TIME, MIDSTERNAL DRSG CDI, RIJ CVL DRSG CDI WITH D5NS @ 30CC/HR, INSULIN GTT @ 5 UNITS/HR, FSBS 96, INSULIN GTT PAUSED AT THIS TIME. GENERALIZED EDEMA, RIGHT LEG HARVEST SITES OPEN TO AIR WITHOUT DRAINAGE, TEDS AND SCDS IN PLACE, PPP, BED IN LOW POSITION, CALL LIGHT IN REACH, VISIBLE TO NURSES STATION.
--- NOTE | 2019-11-16 20:45 | NUR ---
EVENING MEDICATIONS GIVEN WITHOUT DIFFICULTY, PT HAD REMOVED CPAP ON ENTERING ROOM, STATES "I NEED TO PEE", URINAL GIVEN AND ASSISTANCE PROVIDED, PT VOIDED 100CC CLEAR YELLOW URINE, PT COMPLAINS OF PAIN WHEN VOIDING, NO SEDIMENT OR BLOOD NOTED IN URINE, PT UNCOMFORTABLE IN BED, ASSISTED PT TO REPOSITION SLIGHTLY OFF OF LEFT HIP SUPPORTED WITH PILLOW, PT REAPPLIED CPAP MASK, BP ELEVATED, ROUTINE MEDS GIVEN AND PRN HYDRALALZINE ORDER GIVEN, WILL MONITOR CLOSELY FOR CHANGES.
--- NOTE | 2019-11-16 23:18 | NUR ---
PT AWAKE STATES " I NEED TO PEE" WILL NOT ATTEMPT TO INITIATE URINAL HIS SELF, ASSISTANCE PROVIDED, PT COMPLAINS OF BEING COLD, ORAL TEMP 101.8 WITH SHEET AND BLANKET, ROOM AIR COOL, ACETAMINOPHEN 650MG GIVEN PO FOR TEMPERATURE, PT ASSISTED TO REPOSITION FOR COMFORT
[2019-11-17] VITALS (26 sets, daily range): BP systolic 95–184; BP diastolic 45–77
[2019-11-17 07:07] LABS: HEMATOCRIT 25.9 % (42.0-54.0); HEMOGLOBIN 8.2 g/dL (13.5-17.5); MCH 28.2 pg (26.0-34.0); MCHC 31.7 g/dL (31.0-37.0); RBC 2.91 10x6/uL (4.20-6.10); RDW 14.8 % (11.5-14.5)
[2019-11-17 07:08] LABS: WBC 9.9 10x3/uL (4.8-10.8)
[2019-11-17 07:11] LABS: ALBUMIN 2.5 g/dL (3.4-5.0); ANION GAP 17.3 mmol/L (8-16); BILIRUBIN - TOTAL 0.71 mg/dL (0.2-1.3); CALCIUM 8.7 mg/dL (8.5-10.1); CARBON DIOXIDE 20.5 mmol/L (21.0-32.0); CREATININE - SERUM 1.8 mg/dL (0.6-1.3); POTASSIUM - SERUM 3.8 mmol/L (3.5-5.1); PROTEIN - SERUM 6.3 g/dL (6.4-8.2)
--- NOTE | 2019-11-17 19:00 | NUR ---
PT RECEIVED IN BED WITH EYES CLOSED AND CHEST RISING. N/C AT 1LPM. RIGHT IJ WITH PLASMALYTE AT 30ML/HR. UP TO SIDE OF BED TO USE URINAL. URINAL EMPTIED AND PLACED IN REACH OF PT. NO OTHER NEEDS NOTED. WILL CONTINUE TO OBSERVE.
[2019-11-18] VITALS (30 sets, daily range): BP systolic 108–159; BP diastolic 51–85
--- NOTE | 2019-11-18 03:55 | NUR ---
PT UP TO WHEELCHAIR TO GO TO IMAGING FOR XRAY WITH IMAGING STAFF.
[2019-11-18 06:18] LABS: ALBUMIN 2.6 g/dL (3.4-5.0); ANION GAP 14.8 mmol/L (8-16); BILIRUBIN - TOTAL 0.53 mg/dL (0.2-1.3); CALCIUM 8.8 mg/dL (8.5-10.1); CARBON DIOXIDE 24.8 mmol/L (21.0-32.0); CREATININE - SERUM 1.7 mg/dL (0.6-1.3); POTASSIUM - SERUM 3.6 mmol/L (3.5-5.1); PROTEIN - SERUM 6.7 g/dL (6.4-8.2)
[2019-11-18 06:20] LABS: HEMATOCRIT 26.5 % (42.0-54.0); HEMOGLOBIN 8.3 g/dL (13.5-17.5); MCH 27.4 pg (26.0-34.0); MCHC 31.3 g/dL (31.0-37.0); MCV 87.5 fL (80.0-100.0); MEAN PLATELET VOLUME 10.8 fL (7.4-10.4); RBC 3.03 10x6/uL (4.20-6.10); RDW 14.4 % (11.5-14.5); WBC 7.9 10x3/uL (4.8-10.8)
--- NOTE | 2019-11-18 08:37 | NUR ---
Nutrition Follow-up: POD 4 CABG. Pt sleeping soundly this AM; RD interview deferred at this time. Per MD note, monitor for post-op ileus. Diet: Diabetic Wt: 247# (11/17) Last BM: 11/16 Labs noted: Glu 149, Alb 2.6 Meds noted: Protonix -Encourage PO intake and honor food preferences within diet restrictions. -Offer Glucerna if avg PO intake <50%. -Monitor wt. -RD following.
[2019-11-19] VITALS (26 sets, daily range): BP systolic 107–171; BP diastolic 45–99
[2019-11-19 06:01] LABS: HEMOGLOBIN 7.9 g/dL (13.5-17.5); MCH 27.6 pg (26.0-34.0); MCHC 31.6 g/dL (31.0-37.0); MCV 87.4 fL (80.0-100.0); MEAN PLATELET VOLUME 10.2 fL (7.4-10.4); RBC 2.86 10x6/uL (4.20-6.10); RDW 14.1 % (11.5-14.5); WBC 7.4 10x3/uL (4.8-10.8)
[2019-11-19 06:18] LABS: ALBUMIN 2.5 g/dL (3.4-5.0); ANION GAP 9.8 mmol/L (8-16); BILIRUBIN - TOTAL 0.51 mg/dL (0.2-1.3); CARBON DIOXIDE 28.4 mmol/L (21.0-32.0); CREATININE - SERUM 1.9 mg/dL (0.6-1.3); POTASSIUM - SERUM 3.2 mmol/L (3.5-5.1); PROTEIN - SERUM 6.8 g/dL (6.4-8.2)
--- NOTE | 2019-11-19 07:40 | NUR ---
Shift report received. Sitting up in chair. A&OX4. Currently on room air with O2 sat 99%. VSS. Midsternal dressing C/D/I. Subternal TPM wire secured. Dressin C/D/I. RLE harvest sites PATIENT ACCOUNT SPECIALIST. RIJ saline locked, flushes well. SHA hose on bilateral LE. Uses urinal and bedside commode. Pulls 500-750 on I.S. Call light in reach. Will continue to monitor.
--- NOTE | 2019-11-19 08:50 | NUR ---
Transferred to bed. TPM wire removed by Dr. Victoria. Betadine and 4x4s applied to previous ct sites, secured with tagederm dressing. Pt resting comfortably. Will continue to monitor.
--- NOTE | 2019-11-19 15:45 | NUR ---
RIJ CVL discontinued per order. Pt tolerated well. Instructed to stay in bed for 30minutes. No further needs at this time. Will continue to monitor.
--- NOTE | 2019-11-19 17:29 | NUR ---
Ambulates to chair indepently. Warm blankets provided. Percocet 5mg tab given for pain. Will continue to monitor.
[2019-11-20] VITALS (10 sets, daily range): BP systolic 103–153; BP diastolic 56–78
[2019-11-20 05:02] LABS: HEMATOCRIT 24.9 % (42.0-54.0); HEMOGLOBIN 7.9 g/dL (13.5-17.5); MCH 27.6 pg (26.0-34.0); MCHC 31.7 g/dL (31.0-37.0); MCV 87.1 fL (80.0-100.0); MEAN PLATELET VOLUME 10.3 fL (7.4-10.4); RBC 2.86 10x6/uL (4.20-6.10); RDW 14.2 % (11.5-14.5); WBC 6.5 10x3/uL (4.8-10.8)
[2019-11-20 05:18] LABS: ALBUMIN 2.4 g/dL (3.4-5.0); ANION GAP 13.5 mmol/L (8-16); BILIRUBIN - TOTAL 0.53 mg/dL (0.2-1.3); CALCIUM 8.7 mg/dL (8.5-10.1); CREATININE - SERUM 1.8 mg/dL (0.6-1.3); POTASSIUM - SERUM 3.5 mmol/L (3.5-5.1); PROTEIN - SERUM 6.8 g/dL (6.4-8.2)
[2019-11-20] MEDS ORDERED: HEMOCYTE PLUS C1 CAP PO (09:14)
[2019-11-20] MEDS ORDERED: AMIODARONE HCL200 MG PO (09:15)
[2019-11-20] MEDS ORDERED: LOPRESSOR25 MG PO (09:16)
[2019-11-20] MEDS ORDERED: LISINOPRIL2.5 MG PO (09:17)
[2019-11-20] MEDS ORDERED: PERCOCET 5-3251 TAB PO (09:20)
--- NOTE | 2019-11-20 09:20 | NUR ---
Ambulated with physical therapy at this time.
--- NOTE | 2019-11-20 09:45 | NUR ---
Nutrition Follow-up: POD 6 CABG. Ate majority of breakfast this AM. Denies N/V. Diet: Diabetic PO intake: 90% Wt: 246# (11/19) Last BM: 11/17 Labs noted: Glu 132, Alb 2.4 Meds noted: Protonix, Humulin, KDur, Senokot, Colace -Encourage PO intake and honor food preferences within diet restrictions. -Monitor wt. -RD following.
[2019-11-20] MEDS ORDERED: K-DUR20 MEQ PO (09:48)
--- NOTE | 2019-11-20 11:45 | NUR ---
Cardiology appointment set up with Dr. Chung on 12/25/19 at 0930am. Pt will call Dr. Alston office and set up appointment in 2 weeks. Discharge instructions reviewed with pt. Personal belongings sent home with patient. Cpap machine sent home with patient. Wheeled out to personal vehicle.
--- NOTE | 2019-11-22 21:15 | MORECARE ---
CASE MANAGEMENT DISCHARGE SUMMARY PATIENT: KATHY MIKE UNIT: [id number] ADM DATE: 11/14/19 AGE: 69 : 48 SEX: M ROOM/BED: [facility] AUTHOR: HARRIS,DOC PHYSICIAN: REFERRING PHYSICIAN: TRACY FINNEGAN MD DATE OF SERVICE: 11/22/19 Discharge Plan Patient Name: KATHY MIKE Facility: [facility]:[place] : 1950 Planned Disposition: Home Anticipated Discharge Date: Discharge Date: 11/20/2019 Expected LOS: Initial Reviewer: [email or web address] Initial Review Date: 11/14/2019 Generated: 11/22/19 10:14 pm Comments DCP- Discharge Planning Updated by [email or web address]: Janessa Delarosa on 11/22/19 8:[address] LATE ENTRY 11/20/19 Patient Name: KATHY MIKE Admission Status: Urgent Accout number: [id number] Admission Date: 11-14-2019 : 1950 Admission Diagnosis:ATHSCL HEART DISEASE OF [place] CORONARY ARTERY W/O ANG Attending: TRACY FINNEGAN Current LOS: 6 Anticipated DC Date: Planned Disposition: Home Primary Insurance: MEDICARE A & B Discharge Planning Comments: CM met with patient to complete initial dc planning assessment. CM educated patient on the CM role and verbal consent given by patient to complete assessment. Patient lives at home alone but has family that lives close. Patient is independent. At discharge patient plans to return home and feels this is a safe discharge. CM discussed availability of home health, rehab services, and medical equipment. Patient will have family to transport home. Patient denied known discharge needs at this time. D/C IMM SIGNED CM will continue to follow and will assist as needed with dc plans/needs. Marker Machine Attendant: Janessa Delarosa DCP- Discharge Planning Updated by [email or web address]: Janessa Delarosa on 11/15/19 5:[address] CM attempted to speak with patient regarding d/c planning / needs. Patient is very drowsy and unable to answer questions at this time. CM will continue to follow and assist as needed with d/c planning / needs. DCPIA - Discharge Planning Initial Assessment Updated by [email or web address]: Janessa Delarosa on 11/22/19 9:10 pm * Is the patient Alert and Oriented? Yes * How many steps to enter\exit or inside your home? * PCP [facility] * Pharmacy [facility] * Preadmission Environment Home Alone * ADLs Independent * Equipment None * List name and contact numbers for known caregivers / representatives who currently or will assist patient after discharge: KATHY MIKE JR - SON - [phone] * Verbal permission to speak to the caregivers and representatives has been obtained from the patient. Yes * Community resources currently utilized None * Additional services required to return to the preadmission environment? No * Can the patient safely return to the preadmission environment? Yes * Has this patient been hospitalized within the prior 30 days at any hospital? No Coverage Notice Reviewer: [email or web address] - Janessa Delarosa Notice Issued Date-Time: 11/20/2019 11:20 Notice Type: IM Discharge Notice Notice Delivered To: Patient Relationship to Patient: Self Senior Director Marketing Name: Delivery Method: HAND - Hand Delivered Lyudmila Days: Prior Verbal Notification: Recipient Understood Notice: Yes Recipient Signature: Yes Med Rec Note Co-signed by Attending: Coverage Notice Comment: Patient Name: KATHY MIKE Page [phone] at 2115 All edits/amendments must be made on the electronic document DICTATION DATE: 11/22/192114 BENEFIT AUTHORIZER: KURT 11/22/192114 RPT#: [id number] DC DATE:11/20/19 STATUS: DIS IN [facility] [address] [place] [address] END OF REPORT
== END 2019-11-20 11:47 | disposition home or self-care (01) | DRG 236 ==
LOC: D.SDCHOLD 11-14 05:03 → D.CVICU 11-14 05:03 → D.SDCHOLD 11-14 07:30 → D.CVICU 11-14 10:28
PROVIDERS: Emergency Medicine; ADMIT Thoracic Surgery (Cardiothoracic Vascular Surgery); ATTEND Thoracic Surgery (Cardiothoracic Vascular Surgery)
PROC: 021109W Bypass Coronary Artery, Two Arteries from Aorta with Autologous Venous Tissue, Open Approach (ICD-10-PCS; 2019-11-14)
PROC: 06BP4ZZ Excision of Right Saphenous Vein, Percutaneous Endoscopic Approach (ICD-10-PCS; 2019-11-14)
PROC: 0210099 Bypass Coronary Artery, One Artery from Left Internal Mammary with Autologous Venous Tissue, Open Approach (ICD-10-PCS; principal; 2019-11-14 07:30)
DX: I25.10 Atherosclerotic heart disease of native coronary artery without angina pectoris (principal); N18.4 Chronic kidney disease, stage 4 (severe); D62 Acute posthemorrhagic anemia; J45.909 Unspecified asthma, uncomplicated; K21.9 Gastro-esophageal reflux disease without esophagitis; N28.9 Disorder of kidney and ureter, unspecified; Z79.84 Long term (current) use of oral hypoglycemic drugs; M54.9 Dorsalgia, unspecified; G89.29 Other chronic pain; E11.65 Type 2 diabetes mellitus with hyperglycemia; I48.0 Paroxysmal atrial fibrillation; E78.5 Hyperlipidemia, unspecified; E11.22 Type 2 diabetes mellitus with diabetic chronic kidney disease; D72.829 Elevated white blood cell count, unspecified; G47.30 Sleep apnea, unspecified; I12.9 Hypertensive chronic kidney disease with stage 1 through stage 4 chronic kidney disease, or unspecified chronic kidney disease

== ENCOUNTER → 2019-12-11 09:06 | Outpatient (CLI) | payer MEDICARE, OTHER ==
[2019-11-15 10:15] VITALS: BMI 33.0
[~2019-12-11 09:06] MED LIST changes: +AMIODARONE HCL200 MG PO; +HEMOCYTE PLUS C1 CAP PO; +K-DUR20 MEQ PO; +LANTUS INS100 UNITS/; +LISINOPRIL2.5 MG PO; +LOPRESSOR25 MG PO; +PERCOCET 5-3251 TAB PO
== END | disposition home or self-care (01) ==
LOC: D.CT 10-17 13:00
PROVIDERS: ATTEND Internal Medicine Pulmonary Disease
DX: R91.1 Solitary pulmonary nodule (principal)